=== PATIENT | male | born 1970 | race Caucasian/White ===

== ENCOUNTER 2024-01-03 10:04 | Outpatient (CLI) | payer OTHER, SELFPAY ==
--- NOTE | ~2024-01-03 | XR_ITS ---
EXAMINATION: XR chest 2V 01/03/2024 11:19 INDICATION: Malignant neoplasm of the prostate PROCEDURE: 2 view chest COMPARISON: No prior studies FINDINGS: The lungs are clear. The cardiomediastinal silhouette is within normal limits. There are no pleural effusions. There is no pneumothorax suspected. IMPRESSION: 1: NO ACUTE CARDIOPULMONARY DISEASE. Reviewed, dictated and finalized at location B.
--- NOTE | 2024-01-03 10:53 | ECG_ITS ---
Test Date: 2024-01-03 11:04:09 Measurements Intervals [place] Rate: 73 P: 4 OK: 181 QRS: -20 QRSD: 114 T: 11 QT: 408 QTc: 450 Interpretive Statements SINUS RHYTHM POSSIBLE LEFT VENTRICULAR HYPERTROPHY [VOLTAGE CRITERIA PLUS LAE OR QRS WIDENING] No previous ECG available for comparison Electronically Signed On 01-03-2024 12:19:52 CDT by Yuly Giraldo M.D.
[2024-01-03 12:30] LABS: Basophils Absolute Auto 0.1 K/mm3 (0.0-0.1); Eosinophils Absolute Auto 0.2 K/mm3 (0-0.3); Hemoglobin 16.6 g/dL (14.0-18.0); Immature Granulocyte Absolute 0.02 K/mm3 (0.00-0.031); Immature Granulocyte Percent A 0.4 % (0-0.5); Lymphocytes Absolute Auto 1.28 K/mm3 (0.9-3.2); Lymphocytes Percent Auto 25.5 % (18.3-44.2); Mean Corpuscular HGB Conc 33.9 g/dl (32-36); Mean Corpuscular Hemoglobin 31.7 pg (26-34); Mean Corpuscular Volume 93.7 fl (80-100); Mean Platelet Volume 10.3 fl (7.4-10.4); Monocytes Absolute Auto 0.5 K/mm3 (0.1-0.6); Monocytes Percent Auto 9.6 % (2.6-8.5); Neutrophils Percent Auto 60.5 % (45.5-73.1); Platelet Count Result 186 k/mm3 (150-375); Red Blood Count 5.23 M/mm3 (4.6-6.20)
[2024-01-03 12:36] LABS: Alanine Aminotransferase 88 U/L (6-50); Albumin Level 4.3 g/dL (3.5-5.1); Alkaline Phosphatase 69 U/L (38-126); Anion Gap 6 mmol/L (4-12); Aspartate Amino Transferase 57 U/L (17-59); Bilirubin,Total 0.6 mg/dL (0.2-1.3); Blood Urea Nitrogen 11 mg/dL (9-20); Calcium 9.2 mg/dL (8.4-10.2); Carbon Dioxide 28 mmol/L (22-30); Chloride 107 mmol/L (98-107); Estimated Glomerular Filt Rate > 60; Glucose 98 mg/dL (65-110); Potassium 3.8 mmol/L (3.4-5.0); Sodium 141 mmol/L (137-145)
[2024-01-03 12:41] LABS: INR 1.1; Partial Thromboplastin Time 30.5 Seconds (22.3-36.8); Prothrombin Time 14.4 Seconds (11.1-14.7)
[2024-01-03 12:48] LABS: Appearance Urine Clear (Clear); Bilirubin Urine Negative (Negative); Blood Urine Negative (Negative); Color Urine Yellow (Yellow); Glucose Urine UA Negative (Negative); Ketones Urine Negative (Negative); Leukocyte Esterase Ur Negative LEU/UL (Negative); Nitrate Urine Negative (Negative); Protein Urine Negative (Negative); Specific Grav Ur 1.018 (1.001-1.035)
[2024-01-03 12:50] LABS: Add Urine Microscopic? NO
== END 2024-01-03 10:05 | disposition home or self-care (01) ==
LOC: ANHSURGERY 10:11
PROVIDERS: PCP Family Medicine Sports Medicine; Visit Provider Urology
DX: Z01.812 Encounter for preprocedural laboratory examination (principal); Z01.810 Encounter for preprocedural cardiovascular examination; Z01.811 Encounter for preprocedural respiratory examination; C61 Malignant neoplasm of prostate
CPT/HCPCS: 36415; 71046; 80053; 81003; 85025; 85610; 85730; 86850; 86900; 86901; 93005

== ENCOUNTER 2024-01-12 00:09 | Day surgery (SDC) | payer OTHER, SELFPAY ==
--- NOTE | 2024-01-03 07:17 | P.HP_ITS ---
H&P: HPI History of Present Illness Date/Time: 01/03/24 07:17 Chief Complaint: Prostate cancer Narrative: Pleasant 53-year-old gentleman who was initially diagnosed with prostate cancer by an outside urologist (Dr. Rene) when his PSA was 5.5 and April 2022. At that time he had just 2 of 12 cores with [place] 3+3=6, consistent with an NCCN very low risk prostate cancer. Confirmatory biopsy, however, that a PSA of 5.5 showed 2 of 12 cores with [place] 4+3=7. These 2 positive cores were in the left lateral mid and left lateral apex of the prostate. This is consistent with an NCCN unfavorable intermediate risk prostate cancer. After thorough and careful discussion of therapeutic options including ongoing active surveillance, androgen deprivation and definitive intervention with radiation therapy or surgery he has elected for the latter. His prostate volume is 28.4 g. The Carmela table suggest a risk of lymph node involvement of 4%. Prolaris genomic score sugges single modal therapy as the best intervention. He is aware of the risk of this surgery including, but not limited to, adverse cardiopulmonary events, need for additional intervention, rectal injury, erectile dysfunction and urinary incontinence Review of Systems Cardiovascular: Cardiovascular: Denies chest pain, Denies lightheadedness, Denies palpitations and Denies dyspnea Respiratory: Respiratory: Denies dyspnea Gastrointestinal: Gastrointestinal: Denies diarrhea, Denies nausea and Denies vomiting Genitourinary: Genitourinary: Denies hematuria and Denies dysuria Endocrine: Endocrine: Denies palpitations Exam Const: General: no acute distress Resp: Effort & Inspection: normal respiratory effort GI: Inspection: non-distended GI Palp: No abdominal tenderness and No Guarding due to palpation present (GI) Auscultation: normal bowel sounds Assessment and Plan Assessment and plan (1) Prostate cancer: Code(s): C61 - Malignant neoplasm of prostate Status: Acute Assessment and Plan: * Robotic assisted radical prostatectomy and bilateral pelvic lymphadenectomy
--- NOTE | 2024-01-03 10:14 | PC.NURSE ---
Addendum entered by Natalie Rocha RN 01/03/24 10:41: BOWEL PREP ON DAY BEFORE SURGERY PER DR JOHNSON- PT HAS WRITTEN INSTRUCTIONS AND RELAYS UNDERSTANDING. Original Note: Report to the Outpatient Waiting Room, entrance under the green pavilion located off [facility], at time __6:00AM on date __01/12/24 . Planned Procedure Time: ___7:30AM . Time changes happen often and if your time is changed the preop area will call you the afternoon before. - You and your visitor will be asked to self-screen and do not enter if you have any COVID symptoms. - A mask is optional within the hospital at this time. Patients may have clear liquids (water, carbonated beverages, clear teas, apple juice) until 3 hours prior to surgery with a maximum of 20 ounces. - No food from midnight until time of surgery. Take the following medications with a SIP of water the morning of surgery: NONE DO NOT STOP ANY OF YOUR OTHER PRESCRIPTION MEDICATIONS PRIOR TO SURGERY ?EXCEPT THE FOLLOWING Medications to discontinue per physician ___HOLD MELOXICAM AND ALL VITAMINS/SUPPLEMENTS 7 DAYS PRE-OP PER DR JOHNSON- LAST DOSE 01/04/24. Please no make-up, nail mongolian, hairspray, perfume, deodorant, or body powder the day of surgery. No jewelry (including any body piercings) or valuables the day of surgery, leave them at home. Please take a shower or bath the night before, or the morning of, surgery with an antibacterial soap. Wear comfortable, loose fitting clothing. - Jewelry must be removed prior to entering the operating room. Rings and piercings that are not removed may be cut off. - The hospital will not accept responsibility for valuables. - Please leave all valuables, including medications, at home the day of surgery. If you are going home after surgery, a licensed otr flatbed company truck driver must drive you home. - NO public transportation without another adult if you receive anesthesia. - We recommend that an adult stay with you for 24 hours following discharge. - We also recommend that you do not drive, make important decision, drink alcoholic beverages, or take any drugs that were not prescribed by your health care provider for at least 24 hours after your discharge time. Follow any additional instructions given to you from your surgeon. If you or anyone in your household have experienced Covid symptoms in the past week, please notify your surgeon or the nurse liaison at the phone number below for possible testing. Telephone instructions given to ____PATIENT and asked if any additional questions and then verbalized understanding. Patient advised to call surgeon office or pre surgery nurse liaison [phone] if any additional questions.
[2024-01-03 10:24] VITALS: BP 138/87; PULSE 76; RESP 16; TEMP 37.3; O2SAT 95; BMI 33.0
--- NOTE | 2024-01-11 13:52 | P.PNAN_ITS ---
Anes - Initial Pre Proc Eval Procedure: Operation Date: 01/12/24 07:30 Proposed Procedures p Robotic Prostatectomy with Bilateral Lymph Node Dissection - Jeb Cartagena MD Date/Time: 01/11/24 13:52 Surgeon: Jeb Cartagena MD Pre Op Diagnosis: Prostate Cancer Patient Data Age: 53 Gender: M Height: 1.8 m Weight: 107.4 kg Last Vital Signs Temp 37.3 C 01/03/24 10:24 Pulse 76 01/03/24 10:24 Resp 16 01/03/24 10:24 BP 138/87 01/03/24 10:24 Pulse Ox 95 01/03/24 10:24 O2 Del Method Room Air 01/03/24 10:24 Allergies Allergy/AdvReac Type Severity Reaction Status Date / Time No Known Allergies Allergy Verified 01/03/24 10:20 Home Medications Medication Instructions Recorded Confirmed Type ascorbic acid (vitamin C) 1,000 mg 1 g PO DAILY 01/03/24 01/03/24 History capsule atorvastatin 20 mg tablet 20 mg PO HS 01/03/24 01/12/24 History meloxicam 15 mg tablet 15 mg PO HS 01/03/24 01/03/24 History multivitamin with minerals-folic 1 tablet PO DAILY 01/03/24 01/03/24 History acid 0.4 mg tablet Patient hx anesthesia problems: none Family hx anesthesia problems: none Results Review: All pre-operative results and documents have been reviewed as part of the pre- operative evaluation. [facility] Past Medical History Medical History (Updated 01/11/24 @ 13:53 by Christos Champion DO) Hyperlipidemia Prostate cancer Social History Social History (Updated 01/12/24 @ 07:11 by Christos Champion DO) Smoking status: Never smoker Alcohol intake: current Drinks per week: 5 Alcohol use details: 1-2 drinks/day Living arrangements: with family Additional living arrangements comments: [facility] Spiritual care concerns: No Anes - Eval Final PreProcedure Day of Procedure 01/11/24 13:52 Patient weight: obese Heart: regular rate and rhythm Lungs: clear to auscultation Airway: Mallampati scale class II Neurological: alert and oriented Last oral intake: >/= 8 hours ASA classification: III Emergent: no Anesthetic plan: proceed Anesthesia type and monitoring: general ETT and standard monitoring Results Review: All pre-operative results and documents have been reviewed as part of the pre- operative evaluation. Informed Consent: The patient's anesthetic plan and its attendant risks and benefits were discussed with the patient/family/POA. Questions were solicited and answers provided to the satisfaction of the patient/family/POA.
[2024-01-12] VITALS (14 sets, daily range): BP systolic 125–141; BP diastolic 72–96; PULSE 66–87; RESP 14–22; TEMP 36.3–36.8; O2SAT 93–98; BMI 32.3
--- NOTE | 2024-01-12 06:11 | WPDHPUPDATE1 ---
History and Physical Update Update Date/Time: 01/12/24 06:11 History and Physical has been reviewed, including an updated exam of the patient. There are NO changes in the patient's condition. Risks, benefits, and alternatives have been discussed and questions answered. Patient agrees to proceed with procedure.
[2024-01-12] MEDS: LACTATED RINGERS 1,000 ML 30 ML IV CONT ×2 (06:50→11:13)
[2024-01-12] MEDS: ceFAZolin 2 GM/D5W 50 ML 2 GM/50 ML BAG IVPB (07:30)
--- NOTE | 2024-01-12 11:21 | W.PM.PROC2 ---
Procedure Note - Detailed Date of Procedure 01/12/24 Pre-op Diagnosis Prostate Cancer Post-op Diagnosis Same Procedure Performed Bilateral pelvic lympadenectomy, robotic-assisted radical prostatectomy Surgeon Jeb Cartagena MD Anesthesia General Description of Procedure The patient was brought to the operative suite, where he was prepped and draped in routine sterile fashion while in a dorsal lithotomy, deep Trendelenburg position. A supraumbilical 10 mm trocar was placed after insufflation of the abdomen with a Veress needle. Three robotic ports were then placed under direct vision. Two of these were placed in the right lower quadrant - 10 cm and 20 cm lateral to, and in line with, the umbilicus. A third robotic trocar was placed 10 cm to the left of the umbilicus, and 20 cm to the left of the umbilicus, a 12 mm standard laparoscopic trocar was placed to be used as an library clerical assistant port. Lastly, a 5 mm trocar was placed in the left upper quadrant midway between the umbilicus and the left robotic trocar. Attention was then turned to the prostatectomy. I opted for a posterior approach in this patient. An incision was made in the parietal peritoneum along the posterior bladder/posterior prostate about 2 cm above the reflection of the peritoneum over the anterior rectum. The seminal vesicles and vas deferens were immediately identified. Dissection is undertaken in a fashion so as to avoid electrocautery as much as possible, particularly near the tips of the seminal vesicles. Dissection was also carried out in the midline so as to avoid any encounters with the ureters. The vas deferens and the seminal vesicles were dissected in their entirety to the base of the prostate. The plane anterior to Denoviller's fascia, anterior to the rectum and posterior to the prostate was then developed. I then dropped the bladder by incising the anterior parietal peritoneum just lateral to the median umbilical ligaments bilaterally. The bladder was dropped from the anterior abdominal and pelvic wall. The endopelvic fascia was identified and incised bilaterally, allowing for dissection of the posterior-lateral aspect of the prostate. The puboprostatic ligaments were transected near their origin from the posterior pubic ramus. This posterior lateral dissection of the prostate is also undertaken in a fashion so as to avoid electrocautery as much as possible. The dorsal vein of the penis is then secured with an 0 -Vicryl ligature. Attention is then turned to the bladder neck. The anterior bladder neck is incised at the vesico-prostatic junction. The previously placed urethral catheter was drawn through the urethrotomy. A very small bladder neck was maintained throughout the remainder of this dissection. The posterior bladder neck was incised in a fashion so as to avoid any injury to the ureteral orifices. Again, the small aperture of the bladder neck was maintained. The previously dissected vas deferens and the seminal vesicles were brought through the posterior bladder neck incision. The lateral prostatic pedicles were then carefully dissected from the lateral aspect of the prostate bilaterally. The prostatic pedicles were secured with Weck clips and transected. The neurovascular bundles were carefully dissected from the posterior-lateral aspect of the prostate. The dorsal vein of the penis was incised with electrocautery. Using cold scissors, the urethra was incised. After withdrawing the previously placed urethral catheter, the posterior urethra was sharply incised, as was the rectalurethralis muscle. Attention was then turned to an extended bilateral pelvic lymphadenectomy. The limits of this dissection were similar bilaterally. Specifically, the limits were the bifurcation of the common iliac vein proximally, the inguinal ligament distally, the obturator nerve posteriorly and the anterior aspect to the external iliac artery laterally. This dissection was undertaken
[2024-01-12] MEDS: fentaNYL CITRATE INJ (*CRX) 100 MCG/2 ML VIAL 25 MCG IV PUSH ×4 (11:25→12:26)
--- NOTE | 2024-01-12 12:50 | ADMGEN ---
This patient, Logan Harrington, was admitted to 2 Medical Room 259-01. Patient/family oriented to hospital policies and general routines including ID bracelet, bed and alarms, visiting hours, pain management, procedures, bathroom and other care routines, personal items, smoking policy, room service/diet, and visiting hours. Information on how to activate the Rapid Response Team has been discussed. Patient/Family are encouraged to report perceived risks to care and to ask questions if they do not understand what they are told or what they should do.
[2024-01-12] MEDS: LACTATED RINGERS 1,000 ML 125 ML IV CONT ×2 (13:00→21:05)
[2024-01-12] MEDS: PROPARACAINE HCL 0.5% 15 ML OPHTH SOLN 1 DROP EACH EYE (17:05)
[2024-01-12] MEDS: ATORVASTATIN 20 MG TABLET PO (20:18)
[2024-01-12] MEDS: DICLOFENAC SODIUM 0.1% OPHTH SOLN 2.5 ML BOTTLE 1 DROP EACH EYE (20:18)
[2024-01-12] MEDS: oxyCODONE HCL (*CRX) 5 MG TAB IR PO (20:21)
[2024-01-12] MEDS: ONDANSETRON INJ 4 MG/2 ML VIAL IV PUSH (22:41)
[2024-01-13 02:16] VITALS: BP 137/78; PULSE 84; RESP 18; TEMP 36.8; O2SAT 94
[2024-01-13] MEDS: LACTATED RINGERS 1,000 ML 125 ML IV CONT (05:05)
[2024-01-13] MEDS: DICLOFENAC SODIUM 0.1% OPHTH SOLN 2.5 ML BOTTLE 1 DROP EACH EYE (05:05)
[2024-01-13] MEDS: KETOROLAC 30 MG/ML VIAL (*BKC) IV PUSH (05:12)
[2024-01-13 05:23] LABS: Hematocrit 45.7 % (42.0-52.0); Hemoglobin 15.8 g/dL (14.0-18.0)
[2024-01-13 05:48] LABS: Anion Gap 9 mmol/L (4-12); Blood Urea Nitrogen 8 mg/dL (9-20); Calcium 8.9 mg/dL (8.4-10.2); Carbon Dioxide 22 mmol/L (22-30); Chloride 106 mmol/L (98-107); Estimated CRCL calculation 149 ml/min; Estimated Glomerular Filt Rate > 60; Glucose 134 mg/dL (65-110); Potassium 3.7 mmol/L (3.4-5.0); Sodium 137 mmol/L (137-145)
[2024-01-13 06:16] VITALS: BP 106/73; PULSE 83; RESP 18; TEMP 36.7; O2SAT 94
--- NOTE | 2024-01-13 06:28 | WPDUROPN2 ---
Progress Note: A&P Assessment and Plan (1) Prostate cancer: Code(s): C61 - Malignant neoplasm of prostate Status: Acute Assessment and Plan: Doing well POD #1 Increase diet/activity this morning. Anticipate discharge early afternoon. Subjective Subjective Date/Time Seen: 01/13/24 06:28 Interval history: Left corneal abrasion -> better this morning. Otherwise, feeling well. Review of Systems Cardiovascular: Cardiovascular: Denies chest pain, Denies lightheadedness, Denies palpitations and Denies dyspnea Respiratory: Respiratory: Denies dyspnea Gastrointestinal: Gastrointestinal: Denies diarrhea, Denies nausea and Denies vomiting Genitourinary: Genitourinary: Denies hematuria and Denies dysuria Endocrine: Endocrine: Denies palpitations Exam Const: General: no acute distress Resp: Effort & Inspection: normal respiratory effort GI: Inspection: non-distended and other (Incisions clean and dry) GI Palp: No abdominal tenderness and No Guarding due to palpation present (GI) Auscultation: normal bowel sounds Urinary Catheter: Urinary Catheter: patent and draining Objective Data Vital Signs Vital Signs: Vital Signs - 24 hr 01/12/24 06:30 01/12/24 11:13 01/12/24 11:25 Temperature 98.3 F 98.3 F Pulse Rate 69 84 Respiratory Rate 18 22 H Blood Pressure 125/96 H 141/93 H Pulse Oximetry 96 96 95 Oxygen Delivery Simple Face Mask Room Air Oxygen Flow Rate 8 01/12/24 11:28 01/12/24 11:42 01/12/24 11:45 Temperature Pulse Rate 82 83 Respiratory Rate 14 14 Blood Pressure 134/95 H 135/90 Pulse Oximetry 95 96 95 Oxygen Delivery Nasal Cannula Nasal Cannula Nasal Cannula Oxygen Flow Rate 2 2 2 01/12/24 12:00 01/12/24 12:15 01/12/24 13:00 Temperature 97.4 F L Pulse Rate 66 71 71 Respiratory Rate 16 20 18 Blood Pressure 135/88 126/84 137/85 Pulse Oximetry 96 96 98 Oxygen Delivery Room Air Nasal Cannula Oxygen Flow Rate 2 01/12/24 13:15 01/12/24 13:45 01/12/24 14:08 Temperature 97.4 F L 97.4 F L Pulse Rate 75 80 Respiratory Rate 18 17 Blood Pressure 125/84 129/83 Pulse Oximetry 98 93 Oxygen Delivery Room Air Oxygen Flow Rate 01/12/24 14:45 01/12/24 18:16 01/12/24 19:28 Temperature 97.5 F L 97.6 F Pulse Rate 80 78 Respiratory Rate 17 18 Blood Pressure 128/89 128/72 Pulse Oximetry 98 95 Oxygen Delivery Room Air Oxygen Flow Rate 01/12/24 22:16 01/13/24 02:16 01/13/24 06:16 Temperature 98.0 F 98.2 F 98.1 F Pulse Rate 87 84 83 Respiratory Rate 18 18 18 Blood Pressure 135/75 137/78 106/73 Pulse Oximetry 93 94 94 Oxygen Delivery Oxygen Flow Rate Intake/Output Intake/Output: Intake & Output 01/10/24 01/11/24 01/12/24 01/13/24 23:59 23:59 23:59 23:59 Intake Total 1250 1525 Output Total 1225 2500 Balance 25 -975 Meds/Results Medications: Active Medications Generic Name Dose Route Start Last Admin Trade Name Freq PRN Reason Stop Dose Admin Artificial Tears 1 drop 01/12/24 16:25 Artificial Tears Ophth Soln 15 Ml Bottle EACH EYE Q2H PRN Dry Eye(s) Atorvastatin Calcium 20 mg 01/12/24 21:00 01/12/24 20:18 Atorvastatin 20 Mg Tablet PO 20 mg HS SUSY Administration Diclofenac Sodium 1 drop 01/12/24 22:00 01/13/24 05:05 Diclofenac Sodium 0.1% Ophth Soln 2.5 Ml Bottle EACH EYE 01/16/24 21:59 1 drop Q8HR SUSY Administration Fentanyl Citrate 25 mcg 01/11/24 13:53 01/12/24 12:26 Fentanyl Citrate Inj (*Crx) 100 Mcg/2 Ml Vial IV PUSH 25 mcg Q2M PRN Administration Pain Hyoscyamine 0.125 mg 01/12/24 12:31 Hyoscyamine Sulfate 0.125 Mg Tablet SUBLINGUAL Q4H PRN Bladder Spasm Lactated Ringer's 1,000 mls @ 125 mls/hr 01/12/24 12:31 01/13/24 05:05 Lr - Lactated Ringers Iv IV CONT 125 mls/hr .Q8H SUSY Administration Ketorolac Tromethamine 30 mg 01/12/24 12:31 01/13/24 05:12 Ketorolac 30 Mg/Ml Vial (*Bkc) IV PUSH 01/13/24
[2024-01-13 07:59] VITALS: BP 113/67; PULSE 68; RESP 12; TEMP 36.7; O2SAT 96
--- NOTE | 2024-01-13 08:04 | WPDANESPN ---
Anes - Prog Note Post-Op Date/Time: 01/13/24 08:04 Cardiovascular status: normal Respiratory status: normal Airway patency: baseline Mental status: baseline Post-Op hydration status: normal Vital Signs: Last Vital Signs Temp 36.7 C 01/13/24 07:59 Pulse 68 01/13/24 07:59 Resp 12 01/13/24 07:59 BP 113/67 01/13/24 07:59 Pulse Ox 96 01/13/24 07:59 O2 Del Method Room Air 01/12/24 19:28 O2 Flow Rate 2 01/12/24 12:15 Pain Score (VAS): Patient asleep, no nonverbal signs of pain present at this time. I/O: Intake & Output 01/12/24 01/13/24 01/13/24 23:59 07:59 15:59 Intake Total 1200 1525 Output Total 1000 2500 Balance 200 -975 Laboratory Tests 01/13/24 04:41 01/13/24 04:41 01/13/24 04:41 Hgb 15.8 Hct 45.7 Sodium 137 Potassium 3.7 Chloride 106 Carbon Dioxide 22 Anion Gap 9 BUN 8 L Creatinine 0.60 L Estim Creat Clear Calc 149 Estimated GFR > 60 Glucose 134 H Calcium 8.9 Post-procedural complaints: none Patient Feedback: Patient satisfied with anesthetic care.
[2024-01-13] MEDS: levoFLOXacin 500 MG TABLET PO (09:50)
[2024-01-13 10:16] VITALS: BP 121/71; PULSE 77; RESP 18; TEMP 36.6; O2SAT 95
--- NOTE | 2024-01-13 12:32 | P.DS_ITS ---
DS: Admitting Diagnosis Discharge Date 01/13/2024 Admitting Diagnosis Prostate cancer DS: Discharge Diagnosis Discharge Diagnosis (1) Prostate cancer: Code(s): C61 - Malignant neoplasm of prostate Status: Acute DS: Summary Hospital Course Hospital Course: This patient was admitted on the morning of his planned robotic prostatectomy. This procedure was uneventful, as was his postoperative course. By the evening of the procedure he was sitting at the bedside in tolerating a liquid diet. The following morning he was ambulating freely and tolerating regular food. His catheter drainage remained essentially clear throughout. His postoperative hemo globin and serum creatinine were unremarkable. At the time of discharge he has been instructed in appropriate care for his Chase catheter with both a leg bag and bedside bag. He will be discharged with plans to follow-up in 1 week with a cystogram. Time Spent with Patient Time attestation: Total time spent providing and/or coordinating discharge services: DS: Data Data Completed and Pending Pending studies at discharge: Pending at discharge 01/12/24 09:20 Surgical [PTH] Routine Surgical [PTH] Routine Surgical [PTH] Routine Labs on day of discharge: Labs from last 24 hours 01/13/24 04:41 Hgb 15.8 Hct 45.7 Sodium 137 Potassium 3.7 Chloride 106 Carbon Dioxide 22 Anion Gap 9 BUN 8 L Creatinine 0.60 L Estim Creat Clear Calc 149 Estimated GFR > 60 Glucose 134 H Calcium 8.9 Discharge Plan Discharge Patient Disposition: Home, Self-Care Discharge Instructions: 1) Chase catheter -> leg bag / bedside bag at night. 2) No lifting/straining >15lbs. x3 weeks. 3) No driving x1-week. 4) Resume normal, pre-operative diet. 5) My office will contact regarding follow-up in 1-week with cystogram. Stand Alone Forms: General Discharge Instructions Discharge Orders: Discharge Order (Routine); Ordered 01/13/24 Ordered By: Jeb Cartagena Discharge Medications: New hydrocodone-acetaminophen 5-325 mg tablet 1 - 2 tablet PO Q6H PRN (Reason: pain) Qty: 24 0RF ciprofloxacin HCl 500 mg tablet 500 mg PO Q12H Qty: 10 0RF docusate sodium [Colace] 100 mg capsule 100 mg PO DAILY Qty: 30 0RF hyoscyamine sulfate 0.125 mg tablet 0.125 mg PO Q6H PRN (Reason: bladder spasms) Qty: 20 2RF Continued atorvastatin 20 mg tablet 20 mg PO HS meloxicam 15 mg tablet 15 mg PO HS multivit with min-folic acid 0.4 mg Tablet 1 tablet PO DAILY ascorbic acid (vitamin C) 1,000 mg Capsule 1 g PO DAILY
== END 2024-01-13 13:45 | disposition home or self-care (01) ==
LOC: ANHSURGERY 12:26 → ANH2MED 12:47
PROVIDERS: PCP Family Medicine Sports Medicine; Visit Provider Urology
PROC: 0VT04ZZ Resection of Prostate, Percutaneous Endoscopic Approach (ICD-10-PCS; CPT 55867; principal; 2024-01-12 07:30)
DX: C61 Malignant neoplasm of prostate (principal); E78.5 Hyperlipidemia, unspecified; E66.9 Obesity, unspecified; Z68.32 Body mass index [BMI] 32.0-32.9, adult
CPT/HCPCS: 55866; 38571; S2900; 36415; 71046; 80048; 80053; 81003; 85014; 85018; 85025; 85610; 85730; 86850; 86900; 86901; 88305; 88309; 88342; 93005; A9270; J0330; J0690; J1100; J1170; J1885; J2250; J2405; J2704; J3010; J7030; J7120; Q9968

== ENCOUNTER 2024-01-20 12:37 | Outpatient (CLI) | payer OTHER, SELFPAY ==
--- NOTE | ~2024-01-20 | XR_ITS ---
EXAMINATION: XR cystogram 1-2V DATE: 01/20/2024 13:07 INDICATION: Prostate cancer status post prostatectomy. TECHNIQUE: Water-soluble contrast was gravity-infused through the patient's Chase catheter. Multiple fluoroscopic images were obtained. Fluoroscopy exposure time was 0.3 minutes. The total number of briana ges was 9. COMPARISON: None. FINDINGS: There is a Chase catheter in expected position. There is no extraluminal leakage of contras t. No ureteral reflux. IMPRESSION: 1. No extraluminal leakage of contrast. Reviewed, dictated and finalized at location E.
== END 2024-01-20 12:38 | disposition home or self-care (01) ==
LOC: ANHIMG 12:45
PROVIDERS: PCP Family Medicine Sports Medicine; Visit Provider Urology
DX: C61 Malignant neoplasm of prostate (principal); Z98.890 Other specified postprocedural states
CPT/HCPCS: 51600; 74430; Q9967

== ENCOUNTER 2024-04-25 09:33 | Outpatient (CLI) | payer OTHER, SELFPAY ==
--- NOTE | ~2024-04-25 | PE_ITS ---
EXAMINATION: PET_PETPSMAST_PT DATE: 04/25/2024 12:14 INDICATION: Prostate cancer. TECHNIQUE: 4.613 mCi of Ga-68 gozetotide was administered intravenously. Low dose computed tomography (CT) images were acquired from the base of the brain to the proximal thighs for attenuation correcti on and anatomic localization. Automated exposure control was employed. Dose-length product (DLP) was 1289 mGy-cm. Positron emission tomography (PET) images were acquired in the same distribution. COMPARISON: None FINDINGS: Head/neck: There are no pathologically enlarged lymph nodes. Chest: The lungs demonstrate mild atelectasis. No pleural effusion. The heart size is normal. There a re coronary artery calcifications. No pericardial effusion. There are no pathologically enlarged lymp h nodes. Abdomen/pelvis/proximal thighs: There is diffuse hepatic steatosis. The gallbladder, spleen, pancreas , adrenal glands, and kidneys are normal. There are no dilated loops of bowel. There are no pathologi balta enlarged lymph nodes. There is no free intraperitoneal fluid. There is soft tissue in the area of the prostatectomy. There is focal increased activity in the prostatectomy bed to the left of midli ne with maximum SUV of 13.9. There is no osseous malignancy. IMPRESSION: 1. Focal increased activity in the prostatectomy bed on the left, consistent with malignancy. Reviewed, dictated and finalized at location A. IMPRESSION: 1. Focal increased activity in the prostatectomy bed on the left, consistent wi th malignancy.
== END 2024-04-25 09:34 | disposition home or self-care (01) ==
LOC: ANHIMG 09:33
PROVIDERS: PCP Family Medicine Sports Medicine; Visit Provider Urology
DX: C61 Malignant neoplasm of prostate (principal)
CPT/HCPCS: 78815; A9596

== ENCOUNTER 2024-05-21 10:37 | Outpatient (CLI) | payer OTHER, SELFPAY ==
--- NOTE | ~2024-05-21 | MR_ITS ---
EXAMINATION: MR pelvis wo/w con DATE: 05/21/2024 12:15 INDICATION: Malignant neoplasm of prostate. TECHNIQUE: Magnetic resonance imaging (MRI) of the pelvis was performed without and with 20 mL MultiH ance intravenous contrast. COMPARISON: PET/CT 04/25/2024 FINDINGS: There are changes of prostatectomy. There is a 14 mm enhancing mass in the prostatectomy bed on the l eft that demonstrated increased activity on the prior PET. There are no pathologically enlarged lymph nodes. There is no free intraperitoneal fluid. IMPRESSION: 1. 14 mm enhancing mass in the prostatectomy bed on the left that demonstrated increased activity on the prior PET, consistent with malignancy. Reviewed, dictated and finalized at location B.
== END 2024-05-21 10:38 | disposition home or self-care (01) ==
PROVIDERS: PCP Family Medicine Sports Medicine; Visit Provider Radiology Radiation Oncology
DX: C61 Malignant neoplasm of prostate (principal)
CPT/HCPCS: 72197; A9577